=== PATIENT | female | born 1970 | race Caucasian/White ===

== ENCOUNTER → 2017-09-09 | Outpatient (CLI) | payer OTHER | LOC: FIMAGING 12:08 | PROVIDERS: ATTEND Family Medicine | DX: Z12.31 Encounter for screening mammogram for malignant neoplasm of breast (principal); Z80.3 Family history of malignant neoplasm of breast | CPT/HCPCS: G0202 ==

== ENCOUNTER → 2017-09-15 | Outpatient (CLI) | payer OTHER | LOC: FIMAGING 12:07 | PROVIDERS: ATTEND Family Medicine | DX: N60.01 Solitary cyst of right breast (principal) ==

== ENCOUNTER 2018-04-07 06:29 | Day surgery (SDC) | payer OTHER ==
[2018-04-07] MEDS ORDERED: LR 1,000 ML IV ONE (06:56)
[2018-04-07] MEDS ORDERED: EPINEPHrine 1 MG/ML INJ ONE (07:07)
[2018-04-07] MEDS ORDERED: LIDOCAINE 1% 300 MG/30 ML SDV ONE (07:07)
[2018-04-07] MEDS ORDERED: PROPOFOL/EMULSION 500 MG/50 ML BOTTLE IV ONE (07:43)
[2018-04-07] MEDS ORDERED: fentaNYL 100 MCG/2 ML INJ ONE ×3 (07:48→10:28)
[2018-04-07] MEDS ORDERED: MIDAZOLAM 2 MG/2 ML VIAL ONE (08:02)
[2018-04-07] MEDS ORDERED: MIDAZOLAM 2 MG/2 ML VIAL IVP ONE (08:08)
--- NOTE | 2018-04-07 08:10 | PDANEPAE ---
ANE History of Present Illness 47 year old female for hysteroscopy and ablation. ANE Past Medical History - Cardiovascular History Hx Hypertension: No Hx Arrhythmias: No Hx Chest Pain: No Hx Coronary Artery / Peripheral Vascular Disease: No Hx CHF / Valvular Disease: Yes Hx Palpitations: No Cardiovascular History Comment: mitral prolapse - Pulmonary History Hx COPD: No Hx Asthma/Reactive Airway Disease: No Hx Recent Upper Respiratory Infection: No Hx Oxygen in Use at Home: No Hx Sleep Apnea: No Sleep Apnea Screening Result - Last Documented: Negative - Neurologic History Hx Cerebrovascular Accident: No Hx Seizures: No Hx Dementia: No - Endocrine History Hx Diabetes: No - Renal History Hx Renal Disorders: No - Liver History Hx Hepatic Disorders: No - Neurological & Psychiatric Hx Hx Neurological and Psychiatric Disorders: No - Cancer History Hx Cancer: No - Congenital Disorder History Hx Congenital Disorders: No - GI History Hx Gastrointestinal Disorders: No - Other Health History Other Health History: mild anemia - Chronic Pain History Chronic Pain: No - Surgical History Prior Surgeries: none ANE Review of Systems Review of systems is: negative Review of Systems: - Exercise capacity METS (RN): 5 METS ANE Patient History - Allergies Allergies/Adverse Reactions: No Known Allergies Allergy (Verified 03/22/18 14:15) - Home Medications Home Medications: Cholecalciferol (Vitamin D3) 03/22/18 [Last Taken 03/31/18] Fish Oil 1000 mg (*) 03/22/18 [Last Taken 03/31/18] Herbals/Supplements -Info Only 03/22/18 [Last Taken 03/31/18] Iron 03/22/18 [Last Taken 03/31/18] Multivitamins 03/22/18 [Last Taken 03/31/18] - NPO status NPO Since - Liquids (Date): 04/06/18 NPO Since - Liquids (Time): 23:30 NPO Since - Solids (Date): 04/06/18 NPO Since - Solids (Time): 20:30 - Smoking Hx Smoking Status: Never smoked - Family Anes Hx Family Hx Anesthesia Complications: none ANE Labs/Vital Signs - Vital Signs Blood Pressure: 109/78 Heart Rate: 68 Respiratory Rate: 16 O2 Sat (%): 98 Height: 157.48 cm Weight: 58.06 kg ANE Physical Exam - Airway Neck exam: FROM Mallampati Score: Class 1 Mouth exam: normal dental/mouth exam - Pulmonary Pulmonary: no respiratory distress - Cardiovascular Cardiovascular: regular rate and rhythym - ASA Status ASA Status: I ANE Anesthesia Plan Anesthesia Plan: general endotracheal anesthesia
--- NOTE | 2018-04-07 08:19 | PDHPUP ---
History & Physical Update H&P update statement: This history and physical update is based on an assessment of the patient which was completed after admission or registration (within 24 hours), but prior to the surgery/procedure. H&P update: H&P reviewed & patient examined
[2018-04-07] MEDS ORDERED: oxyCODONE IR 5 MG TAB PO PRN (08:52)
[2018-04-07] MEDS ORDERED: ONDANSETRON 4 MG/2 ML VIAL IVP PRN (08:52)
[2018-04-07] MEDS ORDERED: NALOXONE HCL 0.4 MG/ML INJ IVP PRN (08:52)
[2018-04-07] MEDS ORDERED: MEPERIDINE 25 MG/0.5 ML AMP IVP PRN (08:52)
[2018-04-07] MEDS ORDERED: PROMETHAZINE HCL 25 MG/ML INJ IVP PRN (08:52)
[2018-04-07] MEDS ORDERED: ALBUTEROL 3 ML DEYVIAL IH PRN (08:52)
[2018-04-07] MEDS ORDERED: LR 500 ML IV PRN (08:52)
[2018-04-07] MEDS ORDERED: LABETALOL HCL 5 MG/ML 20 ML MDV IVP PRN (08:52)
[2018-04-07] MEDS: fentaNYL 100 MCG/2 ML INJ IVP PRN ×3 (09:30→10:29)
--- NOTE | 2018-04-07 09:33 | POSTANESTH ---
Post Anesthetic Evaluation Cardiovascular Status: Normal, Stable Respiratory Status: Normal, Stable Level of Consciousness/Mental Status: Can Participate in Eval Pain Control: Adequate, Prn Tx Ordered Nausea/Vomiting Control: Adequate, Prn Tx Ordered Complications Possibly Related to Anesthesia: None Noted
[2018-04-07] MEDS ORDERED: ONDANSETRON 4 MG/2 ML VIAL ONE (09:34)
--- NOTE | 2018-04-07 09:58 | POSTOPPROG ---
Post Op Note Date of Operation: 04/07/18 Surgeon: Gini De La Garza Anesthesiologist: denver Ulloa Anesthesia: LMA Pre-op Diagnosis: DUB, endometrial polyp Post-op Diagnosis: DUB , fibroid Indication: DUB Procedure: H/S myomectomy Findings: large submucosal fibroid Inf/Abcess present in the surg proc area at time of surgery?: No EBL: Minimal
--- NOTE | 2018-04-07 10:41 | GOP ---
[f rep st] OPERATIVE REPORT DATE OF OPERATION: 04/07/2018 SURGEON: Gini De La Garza MD ANESTHESIA: Rubia Ulloa MD; general with LMA. PREOPERATIVE DIAGNOSIS: 1. Menorrhagia. 2. Submucosal polyp. 3. Anemia. POSTOPERATIVE DIAGNOSIS: 1. Likely submucosal fibroid, not polyp. 2. Dysfunctional uterine bleeding and anemia. PROCEDURE PERFORMED: Hysteroscopic myomectomy and NovaSure endometrial ablation. FINDINGS: A very large, what I think is a fibroid originating from the posterior fundal portion of t he endometrium and very firm. Normal tubal ostia, normal appearing cervix. INDICATIONS: Patient is a 47-year-old who was originally referred to me by Dr. Sally Holley for arsh rhagia. She has had a Vabra biopsy in the past that was negative and has had a trial of contro l pills which she did not tolerate. She has recently had an ultrasound sonohysterogram, and this cynthia wed a 3.5 cm submucosal growth, at the time suspected to be a polyp, and she desires definitive treat ment with removal of the polyp and NovaSure ablation. DESCRIPTION OF PROCEDURE: With informed consent signed, patient was taken the operating room, placed under general anesthesia without complication, placed in a low dorsal lithotomy position, prepped an d draped in the usual sterile fashion. Tenaculum placed on the anterior lip of the cervix. Cervix d ilated up to 5 mm. The smaller Nixon and Nephew hysteroscope placed into the uterine cavity and find ings as noted above. The Nixon [employer]hew Truclear morcellator placed into the uterus and the rotary blade placed into the morcellator unit. Morcellation was very slow as this was most likely a fibroi d, so the hysteroscope removed and a larger hysteroscope placed into the cervix after it was dilated up to 9 mm, so the 9 mm hysteroscope placed into the uterine cavity and then the reciprocator blade p laced through the Truclear morcellator unit and very quick resection of this fibroid done. Once it w as felt to be completely removed, photos taken of the aftereffect, and net fluid deficit was noted to be 90 cc. The morcellator was removed, and then the NovaSure endometrial ablation device placed int o the uterine cavity. The uterus was sounded to 8.5 cm, so the NovaSure endometrial ablation device placed in the uterine cavity, and length noted to be 6.5 and width was 4.5. Integrity test passed, and burn time was 46 seconds. The NovaSure was removed and hemostasis noted. Patient placed in supi ne position, awakened in the operating room, taken to the recovery room in stable condition, tolerati ng the procedure well. /[id number]/MODL
[2018-04-07 12:06] VITALS: BP 114/60
== END 2018-04-07 11:41 | disposition home or self-care (01) ==
LOC: FSGY 06:29
PROVIDERS: ATTEND Obstetrics & Gynecology Gynecology
PROC: 0U5B7ZZ Destruction of Endometrium, Via Natural or Artificial Opening (ICD-10-PCS; principal; 2018-04-07 08:00)
DX: D25.0 Submucous leiomyoma of uterus (principal); N92.0 Excessive and frequent menstruation with regular cycle; D64.9 Anemia, unspecified
CPT/HCPCS: 58353; C1782; J0171; J2250; J2405; J2704; J3010

== ENCOUNTER → 2018-10-24 | Outpatient (CLI) | payer OTHER | LOC: FIMAGING 09:06 | PROVIDERS: ATTEND Obstetrics & Gynecology Gynecology | DX: Z03.89 Encounter for observation for other suspected diseases and conditions ruled out (principal) ==